=== PATIENT | male | born 1975 | race Caucasian/White ===

== ENCOUNTER → 2016-09-03 | Outpatient (REF) | payer BC, OTHER | LOC: M LAB REF 12:57 | PROVIDERS: ATTEND Internal Medicine Medical Oncology | DX: C62.90 Malignant neoplasm of unspecified testis, unspecified whether descended or undescended (principal) ==

== ENCOUNTER → 2016-09-12 | Outpatient (CLI) | payer OTHER ==
[~2016-09-12] MED LIST: GASTROGRAFIN SOLUTION 30ML (Q9963) As Ordered ONE; ISOVUE-370 76% 100ML VIAL (Q9967) As Ordered ONE
--- NOTE | 2016-09-12 18:35 | REP ---
CT HEAD WITH CONTRAST: REASON: History of testicular carcinoma. COMPARISON: Chest CT 06/06/2016 CONTRAST UTILIZED: 100 mL Optiray 370. The mediastinum and pulmonary irais are unchanged showing no evidence of a mass or adenopathy. There are no pleural or pericardiac effusions. The imaged upper abdomen is unchanged from the prior exam. It should be stated that not as much of the upper abdomen was imaged on today's chest CT, compared to the prior chest CT. There is no significant change in the appearance of the imaged osseous structures. Evaluation of the lung gamino show a few scattered asymmetric bibasilar opacities, likely secondary to subsegmental atelectatic changes and without evidence of definite interim development of an abnormal nodule, mass, or opacity. IMPRESSION: No definite evidence of acute disease with findings are described above. Signed by Kenneth Richey DO 09/13/2016 11:15 A
--- NOTE | 2016-09-12 19:04 | REP ---
CT ABDOMEN AND PELVIS WITH AND WITHOUT CONTRAST: TECHNIQUE: Axial noncontrast images through the abdomen followed by contrast-enhanced images through the abdomen and pelvis using 100 mL Isovue 370 intravenous contrast material, with coronal and sagittal reformations. COMPARISON: 05/21/2016 There were scattered tiny cysts in the liver. These are stable. There is focal fatty infiltration anteriorly along the fissure for the ligamentum teres. Gallbladder is somewhat collapsed and grossly unremarkable. Spleen, adrenals, pancreas are unremarkable. In the upper pole of the right kidney there is a cyst containing a tiny calcification which is unchanged. There is no hydronephrosis. The previously noted significantly enlarged left paraaortic lymph node has decreased in size. It now measures 1.3 cm in short axis dimension. No new adenopathy is seen. There is no abdominal aortic aneurysm. There is no free air or free fluid. There is no bowel wall thickening. The appendix is normal. There is no pelvic mass. IMPRESSION: Previously noted enlarged left paraaortic lymph node has decreased in size, now measuring 1.3 cm in short axis dimension. No new adenopathy. Signed by Pb Vargas MD 09/13/2016 03:51 P
== END ==
LOC: M RAD 14:05
PROVIDERS: ATTEND Internal Medicine Medical Oncology
DX: C62.92 Malignant neoplasm of left testis, unspecified whether descended or undescended (principal)

== ENCOUNTER → 2016-11-19 | Outpatient (REF) | payer OTHER | LOC: M LAB REF 12:53 | PROVIDERS: ATTEND Internal Medicine Medical Oncology | DX: C62.90 Malignant neoplasm of unspecified testis, unspecified whether descended or undescended (principal) ==

== ENCOUNTER → 2017-01-10 | Outpatient (REF) | payer OTHER ==
[2017-01-12 00:07] LABS: HCG SERUM TUMOR MARKER QUANT < 1 mIU/mL (0-3)
== END ==
LOC: M LAB REF 13:22
PROVIDERS: ATTEND Internal Medicine Medical Oncology
DX: C62.90 Malignant neoplasm of unspecified testis, unspecified whether descended or undescended (principal)

== ENCOUNTER → 2017-01-24 | Outpatient (CLI) | payer OTHER ==
--- NOTE | 2017-01-25 06:33 | REP ---
Clinical: Testicular cancer for evaluation. Comparison: 09/12/2016. Technique: Axial contrast enhanced images from the thoracic inlet to the upper abdomen using 100 ml Isovue 370 intravenous contrast material with coronal and sagittal re-formations. Findings: The bilateral lung gamino are relatively well aerated, symmetric and clear. Previously noted subtle scattered areas of right middle lobe, lingular and bibasilar fibroatelectatic changes have essentially completely resolved with only minimal residual scarring in the left base. No acute consolidation, nodule or mass lesion. No pleural effusion/reaction or pneumothorax. Tracheobronchial tree is patent. No axillary, hilar, or mediastinal adenopathy. [id number] identified with tip in the SVC. Thoracic aorta, pulmonary vasculature, and heart/pericardium are normal. Surrounding musculoskeletal structures are intact without focal osseous abnormality. Bilateral adrenal glands are normal. Impression: Essentially normal chest CT as described above. Previously noted areas of atelectasis have essentially resolved. No acute mediastinal or pleuroparenchymal process. No evidence for adenopathy, nodule or mass lesion/metastatic disease. Signed by Wilian Dean MD 01/25/2017 05:54 A
--- NOTE | 2017-01-25 06:33 | REP ---
Clinical: Testicular cancer for follow up. Technique: Axial contrast enhanced images from the lung bases to the pubic symphysis using oral and 100 ml Isovue 370 intravenous contrast material with precontrast and delayed images of the abdomen as well as coronal and sagittal re-formations. Comparison: 09/12/2016. Findings: Lung bases are relatively clear with small area of fibroatelectatic changes at the lingula which appear improved compared to prior examination. Scattered hepatic hypodensities are stable and likely represent small cysts. Liver, spleen, pancreas, gallbladder, bilateral adrenal glands and kidneys are normal the enteric system is without obstruction or acute inflammatory process. Normal terminal ileum and appendix identified in the right lower quadrant. Scattered sigmoid diverticula noted without acute diverticulitis. Pelvis demonstrates normal bladder and age appropriate prostate/seminal vesicles. No ascites. No free air. No intra-abdominal mass lesion. Small retroperitoneal lymph nodes have decreased in size and are nonspecific. A left para-aortic retroperitoneal lymph node which previously measured approximately 17 mm now measures 13 mm. Surrounding musculoskeletal structures are intact and without focal osseous abnormality. Impression: 1. Minimal suspected scarring at the lingula. 2. A 13 mm left para-aortic lymph node decreased and improved compared to prior examination. 3. No further acute abdominopelvic pathology appreciated. Signed by Wilian Dean MD 01/25/2017 05:48 A
== END ==
LOC: M RAD 11:30
PROVIDERS: ATTEND Internal Medicine Medical Oncology
DX: C62.90 Malignant neoplasm of unspecified testis, unspecified whether descended or undescended (principal)

== ENCOUNTER → 2017-05-08 | Outpatient (REF) | payer BC, OTHER | LOC: M LAB REF 12:30 | PROVIDERS: ATTEND Internal Medicine Medical Oncology | DX: C62.90 Malignant neoplasm of unspecified testis, unspecified whether descended or undescended (principal) ==

== ENCOUNTER → 2017-09-04 | Outpatient (CLI) | payer OTHER ==
[~2017-09-04] MED LIST changes: +GASTROGRAFIN SOLUTION 30ML (Q9963) As Ordered; -GASTROGRAFIN SOLUTION 30ML (Q9963) As Ordered ONE; +ISOVUE-370 76% 100ML VIAL (Q9967) As Ordered; -ISOVUE-370 76% 100ML VIAL (Q9967) As Ordered ONE
[2017-09-04 09:26] LABS: BASO % 0.3 % (0.0-1.0); EOS # 0.1 10^3/uL (0.0-0.50); EOS % 1.1 % (0.0-3.0); HEMATOCRIT 45.2 % (42.0-52.0); HEMOGLOBIN 15.5 g/dl (14.0-18.0); IMMATURE GRANULOCYTE % 0.3 % (0-3.0); LYMPH # 0.9 10^3/uL (1.5-4.5); LYMPH % 7.8 % (24.0-44.0); MEAN CORPUSCULAR HEMOGLOBIN 30.2 pg (27.0-33.0); MEAN CORPUSCULAR HGB CONC 34.3 g/dl (32.0-36.5); MEAN CORPUSCULAR VOLUME 88.1 fl (80.0-96.0); MONO # 0.6 10^3/uL (0.0-0.8); MONO % 5.5 % (0.0-5.0); NEUTROPHILS # 9.5 10^3/uL (1.8-7.7); PLATELET COUNT, AUTOMATED 229 10^3/uL (150-450); RED BLOOD COUNT 5.13 10^6/uL (4.30-6.10); WHITE BLOOD COUNT 11.2 10^3/uL (4.0-10.0)
[2017-09-04 09:55] LABS: ALBUMIN 4.1 GM/DL (3.2-5.2); ALBUMIN/GLOBULIN RATIO 1.52 (1.00-1.93); ALKALINE PHOSPHATASE 98 U/L (45-117); ALT/SGPT 23 U/L (12-78); ANION GAP 7 MEQ/L (8-16); AST/SGOT 20 U/L (7-37); BILIRUBIN,TOTAL 0.3 MG/DL (0.2-1.0); BLOOD UREA NITROGEN 19 MG/DL (7-18); CALCIUM LEVEL 8.6 MG/DL (8.5-10.1); CARBON DIOXIDE LEVEL 29 MEQ/L (21-32); CHLORIDE LEVEL 106 MEQ/L (98-107); CREATININE FOR GFR 1.09 MG/DL (0.70-1.30); GLOMERULAR FILTRATION RATE > 60.0 (>60); GLUCOSE, FASTING 102 MG/DL (70-100); LDH LACTATE DEHYDROGENASE 185 U/L (87-241); POTASSIUM SERUM 4.2 MEQ/L (3.5-5.1); SODIUM LEVEL 142 MEQ/L (136-145); TOTAL PROTEIN 6.8 GM/DL (6.4-8.2)
[2017-09-05 10:14] LABS: HCG SERUM TUMOR MARKER QUANT < 1 mIU/mL (0-3)
[2017-09-06 09:28] LABS: ALPHA FETOPROTEIN TUMOR QUANT < 1.3 NG/ML (<8.1)
== END ==
LOC: M RAD 08:37
DX: C62.92 Malignant neoplasm of left testis, unspecified whether descended or undescended (principal); N20.0 Calculus of kidney
CPT/HCPCS: Q9963

== ENCOUNTER → 2017-11-14 | Outpatient (CLI) | payer OTHER ==
[2017-11-14 12:18] LABS: BASO % 0.3 % (0.0-1.0); EOS # 0.2 10^3/uL (0.0-0.50); EOS % 1.6 % (0.0-3.0); HEMOGLOBIN 15.6 g/dl (13.5-17.5); IMMATURE GRANULOCYTE % 0.2 % (0-3.0); LYMPH # 1.5 10^3/uL (1.5-4.5); LYMPH % 15.1 % (24.0-44.0); MEAN CORPUSCULAR HEMOGLOBIN 30.4 pg (27.0-33.0); MEAN CORPUSCULAR HGB CONC 34.7 g/dl (32.0-36.5); MEAN CORPUSCULAR VOLUME 87.7 fl (80.0-96.0); MONO # 0.7 10^3/uL (0.0-0.8); MONO % 6.7 % (0.0-5.0); NEUTROPHILS # 7.5 10^3/uL (1.8-7.7); NEUTROPHILS % 76.1 % (36.0-66.0); PLATELET COUNT, AUTOMATED 245 10^3/uL (150-450); RED BLOOD COUNT 5.13 10^6/uL (4.30-6.10); RED CELL DISTRIBUTION WIDTH 12.1 % (11.5-14.5); WHITE BLOOD COUNT 9.8 10^3/uL (4.0-10.0)
[2017-11-14 14:15] LABS: ALBUMIN 4.2 GM/DL (3.2-5.2); ALKALINE PHOSPHATASE 92 U/L (45-117); ALT/SGPT 24 U/L (12-78); ANION GAP 5 MEQ/L (8-16); AST/SGOT 24 U/L (7-37); BILIRUBIN,TOTAL 0.4 MG/DL (0.2-1.0); BLOOD UREA NITROGEN 18 MG/DL (7-18); CALCIUM LEVEL 8.5 MG/DL (8.5-10.1); CARBON DIOXIDE LEVEL 29 MEQ/L (21-32); CHLORIDE LEVEL 108 MEQ/L (98-107); CHOLESTEROL LEVEL 223 MG/DL (<200); CHOLESTEROL RISK RATIO 6.757 (<5); GLOMERULAR FILTRATION RATE > 60.0 (>60); GLUCOSE, FASTING 97 MG/DL (70-100); HDL CHOLESTEROL 33 MG/DL (>40); LDL CHOLESTEROL 166.8 MG/DL (<100); NON-HDL-C 190 MG/DL; POTASSIUM SERUM 4.7 MEQ/L (3.5-5.1); SODIUM LEVEL 142 MEQ/L (136-145); TRIGLYCERIDES LEVEL 116 MG/DL (<150)
== END ==
LOC: M LAB 11:54
DX: Z13.29 Encounter for screening for other suspected endocrine disorder (principal)
CPT/HCPCS: 84443

== ENCOUNTER → 2017-11-25 | Outpatient (REF) | payer OTHER ==
[2017-11-25 19:01] LABS: APPEARANCE, URINE CLEAR (CLEAR); BACTERIA, URINE AUTO NEGATIVE (NEGATIVE); BILIRUBIN, URINE AUTO NEGATIVE (NEGATIVE); BLOOD, URINE BLOOD NEGATIVE (NEGATIVE); COLOR, URINE YELLOW (YELLOW); GLUCOSE, URINE (UA) AUTO NEGATIVE (NEGATIVE); KETONE, URINE AUTO NEGATIVE (NEGATIVE); LEUKOCYTE ESTERASE, URINE AUTO NEGATIVE (NEGATIVE); MUCUS, URINE SMALL (NEGATIVE); NITRITE, URINE AUTO NEGATIVE (NEGATIVE); PROTEIN, URINE AUTO NEGATIVE (NEGATIVE); RBC, URINE AUTO 0 /HPF (0-3); SPECIFIC GRAVITY URINE AUTO 1.009 (1.002-1.035); SQUAMOUS EPITHELIAL CELL UR AU 0 /HPF (0-6); UROBILINOGEN, URINE AUTO 0.2 mg/dL (0.0-2.0); WBC, URINE AUTO 1 /HPF (0-3)
== END ==
LOC: M SMT 17:07
DX: N50.811 Right testicular pain (principal)

== ENCOUNTER → 2018-03-07 | Outpatient (REF) | payer OTHER, BC ==
[2018-03-07 14:15] LABS: ALPHA FETOPROTEIN TUMOR QUANT 2.1 NG/ML (<8.1)
[2018-03-08 08:06] LABS: HCG SERUM TUMOR MARKER QUANT < 1 mIU/mL (0-3)
== END ==
LOC: M LAB REF 12:56
DX: Z85.47 Personal history of malignant neoplasm of testis (principal)
CPT/HCPCS: 84702

== ENCOUNTER → 2018-10-10 | Outpatient (CLI) | payer OTHER ==
[~2018-10-10] MED LIST changes: +CYMB1CAP5 PO; -GASTROGRAFIN SOLUTION 30ML (Q9963) As Ordered; -ISOVUE-370 76% 100ML VIAL (Q9967) As Ordered; +LIDOCAINE 2% MDV 20 ML VIAL As Ordered ONE; +LIDOCAINE W/EPINEPHRINE 1% 20ML VIAL As Ordered ONE; +MIDAZOLAM INJ 2 MG/2 ML VIAL (J2250) As Ordered ONE; +ceFAZolin 1GM INJ (J0690 PER 500MG) As Ordered ONE; +fentaNYL 100 MCG/2 ML INJECTION (J3010) As Ordered ONE
--- NOTE | 2018-10-10 11:36 | ROOPDOC ---
[facility] Report Of Operation Report of Operation DATE OF PROCEDURE: 10/10/18 PREPROCEDURE DIAGNOSES: 1. Testicular cancer 2. No longer requiring Port-A-Cath IV access POSTPROCEDURE DIAGNOSES: Same PROCEDURE: Removal right IJ Port-A-Cath. SURGEON: Warren Banks MD ANESTHESIA: Local and sedation: Lidocaine with epinephrine 7 mL subcutaneous; mo derate IV conscious sedation was supervised by Dr. Banks. The patient was independently monitored by registered nurse assigned to the Department of radiology using automated blood pressure, EKG, and pulse oximetry. The detailed consciousness record is probably stored in the hospital information system. The following is a conscious sedation record including start and end times: Start time 10:34, end time 11:05, 1 mg Versed IV, 50 g fentanyl IV. The patient tolerated to sedation without complication. INDICATION FOR PROCEDURE: Mr. Nava is a very pleasant 43-year-old patient who had a right IJ [id number] for blood draws, medication infusions, and chemotherapy for testicular cancer. He no longer requires this IV access. Risks, benefits and alternatives to removal of the [id number] were explained to the patient and his or to the procedure and they were agreeable to proceed. Informed consent was obtained. PROCEDURE NOTE: The patient was brought to the angiographic suite in stable condition. Antibiotics and sedation were administered without complication. His right chest was prepped and draped in a sterile fashion. A timeout was performed. Fluoroscopy x-ray of the chest was obtained in the catheter appeared to be intact with the tip freely mobile in the right atrium. Local anesthesia was chief human resources officer to the skin and subcutaneous tissue around the port on the right chest. A skin incision was made over the previous skin incision and carried down to the port capsule. Scissors were used to dissect the capsule away from the port. Once the port was freely, pressure was held at the right neck and the port was removed. The port was inspected and seen to be intact along with the catheter. A fluoroscopy x-ray of the chest was obtained and no portion of the port was noted to be left behind. The pocket was irrigated with saline. 2 interrupted Vicryl sutures were used to close down the port pocket to diminished at space. A running subcuticular Vicryl suture was used to approximate the deep tissues. A running subcuticular Monocryl suture was used to close the skin. Gentle pressure was held over the jugular access site while closing. Dermabond was placed over the skin as a final dressing. The patient tolerated the procedure well and was then taken to recovery in stable condition and was monitored postprocedure with head of bed elevated. He was subsequently discharged in stable condition. ESTIMATED BLOOD LOSS: Approximately 1 mL COMPLICATIONS: None SPECIMEN: None DRAINS: None WARREN BANKS MD Oct 10, 2018 11:36
== END | disposition home or self-care (01) ==
LOC: M IRPRO 09:39
PROVIDERS: ATTEND Internal Medicine Hematology & Oncology
DX: Z45.2 Encounter for adjustment and management of vascular access device (principal); C62.90 Malignant neoplasm of unspecified testis, unspecified whether descended or undescended
CPT/HCPCS: 36590; 77001; 99152; 99153; J0690; J2250; J3010

== ENCOUNTER → 2019-03-31 | Outpatient (CLI) | payer OTHER ==
[~2019-03-31] MED LIST changes: +GASTROGRAFIN SOLUTION 30ML (Q9963) As Ordered ONE; +ISOVUE-370 76% 100ML VIAL (Q9967) As Ordered ONE; -LIDOCAINE 2% MDV 20 ML VIAL As Ordered ONE; -LIDOCAINE W/EPINEPHRINE 1% 20ML VIAL As Ordered ONE; -MIDAZOLAM INJ 2 MG/2 ML VIAL (J2250) As Ordered ONE; -ceFAZolin 1GM INJ (J0690 PER 500MG) As Ordered ONE; -fentaNYL 100 MCG/2 ML INJECTION (J3010) As Ordered ONE
--- NOTE | 2019-04-01 05:27 | REP ---
Clinical: History of testicular carcinoma. Technique: Axial contrast enhanced images from the lung bases to the pubic symphysis with coronal and sagittal re-formations using oral (per protocol) and 100 ml Isovue 370 intravenous contrast material. Delayed images of the abdomen obtained. Comparison: 03/12/2018, 01/24/2017 Findings: Lung bases are clear. Visualized heart and pericardium normal. Liver demonstrates stable subcentimeter hypodensities suggesting small cysts. Spleen, pancreas, gallbladder, bilateral adrenal glands and left kidney are normal. Right kidney includes stable 1.1 cm complex cyst with small calcification. The enteric system is without obstruction or acute inflammatory process. Normal terminal ileum and appendix identified in the right lower quadrant. Pelvis demonstrates normal bladder and age appropriate prostate/seminal vesicles. No ascites. No adenopathy. No mass lesion. Abdominal aorta and vasculature appears normal. Musculoskeletal structures are intact. Impression: 1. Stable hepatic hypodensities and right renal complex cyst unchanged through 2017. 2. No acute abdominopelvic pathology appreciated. Specifically no evidence for metastasis, ascites, adenopathy or mass. Electronically Signed by Wilian Dean MD 04/01/2019 05:19 A
== END ==
LOC: M RAD 13:33
PROVIDERS: ATTEND Internal Medicine Hematology & Oncology
DX: C62.90 Malignant neoplasm of unspecified testis, unspecified whether descended or undescended (principal)
CPT/HCPCS: 74177; Q9963; Q9967

== ENCOUNTER → 2019-12-18 | Outpatient (CLI) | payer OTHER ==
[~2019-12-18] MED LIST changes: -GASTROGRAFIN SOLUTION 30ML (Q9963) As Ordered ONE; -ISOVUE-370 76% 100ML VIAL (Q9967) As Ordered ONE
[2019-12-18 11:20] LABS: BASO % 0.4 % (0.0-1.0); EOS # 0.1 10^3/uL (0.0-0.5); EOS % 1.6 % (0.0-3.0); HEMATOCRIT 46.9 % (42.0-52.0); HEMOGLOBIN 15.5 g/dl (13.5-17.5); LYMPH # 1.1 10^3/uL (1.5-5.0); LYMPH % 13.5 % (24.0-44.0); MEAN CORPUSCULAR HEMOGLOBIN 30.3 pg (27.0-33.0); MEAN CORPUSCULAR VOLUME 91.6 fl (80.0-96.0); MONO # 0.4 10^3/uL (0.0-0.8); MONO % 5.5 % (0.0-5.0); NEUTROPHILS # 6.2 10^3/uL (1.5-8.5); NEUTROPHILS % 78.6 % (36.0-66.0); PLATELET COUNT, AUTOMATED 286 10^3/uL (150-450); RED BLOOD COUNT 5.12 10^6/uL (4.30-6.10); WHITE BLOOD COUNT 7.9 10^3/uL (4.0-10.0)
[2019-12-18 12:11] LABS: ALT/SGPT 34 U/L (12-78); BILIRUBIN,TOTAL 0.6 MG/DL (0.2-1.0); BLOOD UREA NITROGEN 21 MG/DL (7-18); CALCIUM LEVEL 8.5 MG/DL (8.5-10.1); CARBON DIOXIDE LEVEL 28 MEQ/L (21-32); CHLORIDE LEVEL 108 MEQ/L (98-107); CREATININE FOR GFR 1.12 MG/DL (0.70-1.30); GLOMERULAR FILTRATION RATE > 60.0 (>60); GLUCOSE, FASTING 119 MG/DL (70-100); POTASSIUM SERUM 4.7 MEQ/L (3.5-5.1); SODIUM LEVEL 142 MEQ/L (136-145); TOTAL PROTEIN 6.6 GM/DL (6.4-8.2)
== END ==
LOC: M PLALAB 09:22
PROVIDERS: ATTEND Internal Medicine Hematology & Oncology
DX: C62.90 Malignant neoplasm of unspecified testis, unspecified whether descended or undescended (principal)

== ENCOUNTER → 2020-03-23 | Outpatient (CLI) | payer OTHER ==
[~2020-03-23] MED LIST changes: +CLON0.5T2 PO; +DULO1CAP6 PO; +GABA-843 PO; +GASTROGRAFIN SOLUTION 30ML (Q9963) As Ordered ONE; +ISOVUE-370 76% 100ML VIAL As Ordered ONE
--- NOTE | 2020-04-11 11:40 | REP ---
CONTRAST ENHANCED CT OF THE ABDOMEN AND PLEVIS: 03/23/20 CLINICAL: Testicular seminoma for follow-up. TECHNIQUE: Axial contrast enhanced images from the lung bases to the pubic symphysis using oral (per protocol) and 100cc Isovue 370 intravenous contrast material with coronal and sagittal reformations. COMPARISON: 03/12/18. FINDINGS: Liver again demonstrates a few scattered stable hypodensities consistent with benign hepatic cysts. Spleen, pancreas, gallbladder, bilateral adrenal glands and kidneys are essentially normal. A 2.5mm non-obstructing right renal calculus and 1.2cm right simple cyst are again identified and stable. The enteric system is without obstruction or acute inflammatory process. Normal terminal ileum and appendix identified in the right lower quadrant. A few scattered sigmoid diverticula noted without acute diverticulitis. The pelvis demonstrates a normal bladder and age appropriate prostate/seminal vesicles. No ascites. No free air. No adenopathy. Atherosclerotic changes to the aorta and vasculature noted without aneurysm or dissection. Musculoskeletal structures without acute osseous abnormality. IMPRESSION: 1. No acute abdominal pelvic pathology appreciated. Specifically no evidence for metastatic disease. 2. No ascites. No free air. No adenopathy. 3. Stable benign hepatic cysts, right renal cyst and non-obstructing right renal calculus. MTDD
== END ==
LOC: M RAD 10:38
PROVIDERS: ATTEND Internal Medicine Hematology & Oncology
DX: C62.90 Malignant neoplasm of unspecified testis, unspecified whether descended or undescended (principal)
CPT/HCPCS: 71260; 74177; Q9963; Q9967

== ENCOUNTER → 2020-07-20 | Outpatient (CLI) | payer SELFPAY ==
[~2020-07-20] MED LIST changes: -GASTROGRAFIN SOLUTION 30ML (Q9963) As Ordered ONE; -ISOVUE-370 76% 100ML VIAL As Ordered ONE
== END ==
LOC: M LABSMTC 10:35
PROVIDERS: ATTEND Pediatrics
DX: Z20.822 Contact with and (suspected) exposure to COVID-19 (principal)

== ENCOUNTER → 2021-06-30 | Outpatient (CLI) | payer BC ==
[~2021-06-30] MED LIST changes: +DULO1CAP5 PO; +GABA-282 PO; -GABA-843 PO
== END ==
LOC: M RAD 07:37
PROVIDERS: ATTEND Internal Medicine Medical Oncology
DX: C62.90 Malignant neoplasm of unspecified testis, unspecified whether descended or undescended (principal)

== ENCOUNTER → 2021-07-12 | Outpatient (REF) | LOC: M LABSMTC 09:52 | PROVIDERS: ATTEND Pediatrics | DX: Z11.52 Encounter for screening for COVID-19 (principal); Z20.822 Contact with and (suspected) exposure to COVID-19 ==

== ENCOUNTER → 2021-07-17 | Outpatient (REF) | LOC: M LABSMTC 09:44 | PROVIDERS: ATTEND Family Medicine | DX: Z11.52 Encounter for screening for COVID-19 (principal); Z20.822 Contact with and (suspected) exposure to COVID-19 ==

== ENCOUNTER → 2022-05-02 | Outpatient (REF) | LOC: M EMP 08:43 | PROVIDERS: ATTEND Family Medicine | DX: Z11.52 Encounter for screening for COVID-19 (principal) ==

== ENCOUNTER → 2022-06-28 | Outpatient (CLI) | payer BC | LOC: M RAD 14:17 | PROVIDERS: ATTEND Internal Medicine Medical Oncology | DX: Z85.47 Personal history of malignant neoplasm of testis (principal) ==

== ENCOUNTER → 2023-05-03 | Outpatient (REF) | LOC: M EMP 10:23 | PROVIDERS: ATTEND Family Medicine | DX: Z11.52 Encounter for screening for COVID-19 (principal) ==

== ENCOUNTER → 2023-06-28 | Outpatient (CLI) | payer BC | LOC: M RAD 10:53 | PROVIDERS: ATTEND Internal Medicine Medical Oncology | DX: C62.90 Malignant neoplasm of unspecified testis, unspecified whether descended or undescended (principal) ==

== ENCOUNTER → 2023-09-25 | Outpatient (CLI) | payer OTHER | LOC: M PLAIMG 09:32 | PROVIDERS: ATTEND Physician Assistant | DX: M25.521 Pain in right elbow (principal) ==